=== PATIENT | female | born 1990 | race Caucasian/White ===

== ENCOUNTER 2018-12-06 09:32 | Outpatient (CLI) | payer OTHER, SELFPAY ==
[2018-12-06] MEDS: Breeza Beverage 473 ML BTL PO ×2 (09:48→09:49)
[2018-12-06] MEDS: Omnipaque 350 MG/ML 50 ML BTL PO (09:49)
--- NOTE | 2018-12-06 11:00 | DI.CT_ITS ---
EXAM: CT ABDOMEN PELVIS W CLINICAL HISTORY: GENERALIZED ENLARGED LYMPH NODES, R59.1; EPIGASTRIC PAIN, R10.13. TECHNIQUE: The examination was carried out according to the usual protocol with an intravenous injec tion of 100 mL of Omnipaque 350 and oral ingestion of dilute Omnipaque. COMPARISON: No exams were available for comparison FINDINGS: The lung bases are unremarkable. The liver is normal. The gallbladder is normal. There is no evidenc e of cholelithiasis or biliary obstruction. The pancreas and spleen are normal. The kidneys are unr emarkable. The adrenals are intact. Scattered small retroperitoneal lymph nodes are demonstrated. T here is no evidence of bowel obstruction. There is nothing to suggest an acute appendix. There is no evidence of free air or free fluid in the intraperitoneal space. The reproductive organs as visuali zed are intact. The bladder is normal. There is no evidence of hernia. There is no evidence of an a ortic aneurysm. No bony abnormality is apparent. IMPRESSION: There is no evidence of a mass or lymphadenopathy. No abnormality is identified.
[2018-12-06] MEDS: Omnipaque 350 MG/ML 100 ML BTL IJ (11:17)
== END 2018-12-06 09:52 ==
PROVIDERS: PCP General Practice; Visit Provider General Practice
DX: R59.0 Localized enlarged lymph nodes (principal); R10.13 Epigastric pain
CPT/HCPCS: 74177; J3490; Q9967